=== PATIENT | male | born 1945 | race Caucasian/White ===

== ENCOUNTER 2023-09-17 11:23 | Emergency (ER) | payer OTHER, SELFPAY ==
[2023-09-17] VITALS (15 sets, daily range): BP systolic 117–157; BP diastolic 65–88; PULSE 78–85; RESP 16–20; TEMP 36.3; O2SAT 85–100
--- NOTE | ~2023-09-17 | CT_ITS ---
EXAMINATION: CT abdomen pelvis wo con DATE: 09/17/2023 13:24 INDICATION: Right flank pain. History of bladder cancer. Status post urostomy. TECHNIQUE: Computed tomography (CT) of the abdomen and pelvis was performed without intravenous contr ast. The dose-length product was 646.84 mGy-cm. Automated exposure control and iterative reconstructi on technique were employed. COMPARISON: None. FINDINGS: Mild emphysema. There is dependent atelectasis. Heart size normal. There are gallstones. Th ere is a ureteral diversion with stent extending from the left kidney and 2 ureterostomy in the right mid abdomen. Right kidney is unremarkable. Left kidney is atrophic. There are surgical changes consi stent with bladder resection and lymph node dissection of the pelvis. There is aortic aneurysm with d issection. Aorta measures 3.4 cm. Colonic diverticulosis without evidence for diverticulitis. Status post anterior and posterior fusion at L4-5 and L5-S1. Severe lumbar spondylosis. IMPRESSION: 1. Status post cystectomy with ureteral diversion. 2: Left renal atrophy. Punctate nonobstructing left nephrolithiasis. 3: Infrarenal abdominal aortic aneurysm measuring 3.4 cm with aortic dissection. 4: Cholelithiasis. Reviewed, dictated and finalized at location L. IMPRESSION: 1. Status post cystectomy with ureteral diversion. 2: Left renal atrophy. Punctate nonobstructing left nephrolithiasis. 3: Infrarenal abdominal aortic aneurysm measuring 3.4 cm with aortic dissectio n. 4: Cholelithiasis.
[2023-09-17 12:29] LABS: Appearance Urine Cloudy (Clear); Bacteria Urine 1+ /hpf; Bilirubin Urine Negative (Negative); Blood Urine 1+ (Negative); Color Urine Yellow (Yellow); Glucose Urine UA Negative (Negative); Ketones Urine Negative (Negative); Leukocyte Esterase Ur 3+ LEU/UL (Negative); Nitrate Urine Positive (Negative); Protein Urine 1+ mg/dL (Negative); Squamous Epithelial Cell Urine None seen /hpf (Few); Urobilinogen Urine 0.2 mg/dL (<2.0); WBC Urine 21-50 /hpf; pH Urine 7.5 (5.0-9.0)
[2023-09-17 12:35] LABS: Add Urine Microscopic? YES
--- NOTE | 2023-09-17 13:04 | ED.BACK ---
HPI - Back Pain/Injury General Chief Complaint: Back Pain/Injury Stated Complaint: Right side pain Time Seen by Provider: 09/17/23 12:40 History of Present Illness HPI Narrative: Patient is a 77-year-old male with a history of bladder cancer status post urostomy, nephrostomy on the left, COPD presenting with right flank pain. Patient states that for the last 4 to 6 weeks he has had aching in his right flank that seems to be worse in the morning. States that with the rest, heating pad, and some movement it seems to improve. Unfortunately, it has been more severe the last several mornings so he came in for evaluation. He denies any midline back pain or left flank pain. States that he has been having normal urinary output into his urostomy bag. Denies any blood. Denies fevers or chills, abdominal pain, nausea or vomiting. No chest pain or shortness of breath. No changes in bowel movements. Patient has his nephrostomy tube changed every 5 weeks or so, states that he last had it changed about 3 weeks ago. Related Data Allergies Allergy/AdvReac Type Severity Reaction Status Date / Time No Known Allergies Allergy Verified 09/17/23 11:24 Review of Systems Review of Systems: All systems reviewed & are unremarkable except as noted in HPI and below PMFSH Past Medical History Medical History Bladder absent Bladder cancer BMI 26.0-26.9,adult Surgical History Surgical History H/O Spinal surgery Family History Family History Father Dementia Tuberculosis Mother Breast cancer Sibling Bone cancer Social History Social History Smoking status: Current every day smoker Tobacco type: cigarettes Second hand tobacco smoke exposure: No Alcohol intake: current Substance use: never Substance use type: does not use Lack of Transportation: No Lack of Food: Never True Current Housing: I Have Housing Concerned About Future Housing: No Difficulty Paying Gas/Electric Bills: No Difficulty Paying for Meds: No Currently Unemployed: No Education: High School Diploma/GED Difficulty w/ Childcare or Family Care: No Living arrangements: with family Occupation/Education: retired 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 Gender identity (if verbalized by the patient): Male Exam Narrative: GENERAL: Chronically ill-appearing, no acute distress, pleasant and cooperative HEAD: Normocephalic, atraumatic. EYES: PERRLA and EOMI. ENT: Mucous membranes moist. NECK: Supple. CHEST: Clear to auscultation. No respiratory distress. HEART: Regular rate and rhythm ABDOMEN: Soft, nontender, nondistended; urostomy bag in place with clear yellow urine, no abdominal tenderness; mild right CVA tenderness, no midline back tenderness, no left CVA tenderness EXTREMITIES: Normal range of motion. No edema. SKIN: Warm, dry, no rash. NEURO: No focal deficits. Alert and oriented x3. PSYCH: Normal mood and affect. Course Vital Signs Vital signs: Vital Signs Temperature 97.3 F L 09/17/23 11:26 Pulse Rate 85 09/17/23 11:26 Respiratory Rate 20 09/17/23 11:26 Blood Pressure 157/80 H 09/17/23 11:26 Pulse Oximetry 100 09/17/23 11:26 Oxygen Delivery Room Air 09/17/23 11:26 Temperature 97.3 F L 09/17/23 11:26 Pulse Rate 78 09/17/23 15:15 Respiratory Rate 16 09/17/23 15:15 Blood Pressure 138/84 09/17/23 15:15 Pulse Oximetry 98 09/17/23 15:15 Oxygen Delivery Room Air 09/17/23 11:26 MDM - Back Pain/Injury MDM Narrative Medical decision making narrative: Patient is a 77-year-old male presenting with right flank pain for the last 4 to 6 weeks. Vitals are stable. Exam remarkable for the above. He decl
[2023-09-17 13:33] LABS: Basophils Absolute Auto 0.1 K/mm3 (0.0-0.1); Basophils Percent Auto 0.7 % (0.2-1.2); Eosinophils Absolute Auto 0.5 K/mm3 (0-0.3); Eosinophils Percent Auto 5.1 % (0-4.4); Hematocrit 47.9 % (42.0-52.0); Hemoglobin 15.8 g/dL (14.0-18.0); Immature Granulocyte Absolute 0.03 K/mm3 (0.00-0.031); Immature Granulocyte Percent A 0.3 % (0-0.5); Lymphocytes Absolute Auto 3.06 K/mm3 (0.9-3.2); Lymphocytes Percent Auto 29.1 % (18.3-44.2); Mean Corpuscular Hemoglobin 30.2 pg (26-34); Mean Corpuscular Volume 91.4 fl (80-100); Mean Platelet Volume 9.9 fl (7.4-10.4); Monocytes Absolute Auto 0.8 K/mm3 (0.1-0.6); Neutrophils Percent Auto 56.8 % (45.5-73.1); Platelet Count Result 234 k/mm3 (150-375); Red Blood Count 5.24 M/mm3 (4.6-6.20); White Blood Count 10.5 K/mm3 (4.5-10.0)
[2023-09-17] MEDS: SODIUM CHLORIDE 0.9% IV 1,000 ML 999 ML IV CONT (13:37)
[2023-09-17] MEDS: cefTRIAXone 2 GM/NS 100 ML 2 GM/100 ML BAG IVPB (13:37)
[2023-09-17 14:41] LABS: Alanine Aminotransferase 20 U/L (6-50); Albumin Level 4.4 g/dL (3.5-5.1); Alkaline Phosphatase 66 U/L (38-126); Anion Gap 10 mmol/L (8-16); Aspartate Amino Transferase 33 U/L (17-59); Bilirubin,Total 0.5 mg/dL (0.2-1.3); Blood Urea Nitrogen 26 mg/dL (9-20); Calcium 9.4 mg/dL (8.4-10.2); Carbon Dioxide 22 mmol/L (22-30); Chloride 107 mmol/L (98-107); Estimated CRCL calculation 50 ml/min; Estimated Glomerular Filt Rate 59; Glucose 105 mg/dL (65-110); Potassium 4.5 mmol/L (3.4-5.0); Sodium 139 mmol/L (137-145)
== END 2023-09-17 16:05 | disposition home or self-care (01) ==
PROVIDERS: Emergency Medicine; Emergency Provider Emergency Medicine; PCP Family Medicine
DX: N39.0 Urinary tract infection, site not specified (principal); F17.210 Nicotine dependence, cigarettes, uncomplicated; Z85.51 Personal history of malignant neoplasm of bladder
CPT/HCPCS: 36415; 74176; 80053; 81001; 85025; 87077; 87086; 87147; 87181; 87186; 96365; 99284; J0696; J7030